=== PATIENT | male | born 1930 | race Caucasian/White ===

== ENCOUNTER 2018-09-11 13:32 | Inpatient (IN) | payer MEDICARE, OTHER ==
[~2018-09-11] VITALS: Ht 167.6 cm; Wt 76.7 kg
[~2018-09-11 13:32] MED LIST: ALLOPURINOL100 MG PO; ATENOLOL50 MG PO; FUROSEMIDE40 MG PO; GLIMEPIRIDE2 MG PO; ISOSORBIDE MONO60 MG PO; LIOTHYRONINE SO5 MCG PO; LIPITOR40 MG PO; NAPROXEN250 MG PO; NORCO 7.5-3251 EACH PO; PLAVIX75 MG PO; SPIRONOLACTONE25 MG PO; TRAZODONE HCL50 MG PO; ULTRAM50 MG PO; Z XANAX PO; Z.0.LEVOTHYROXINE50 PO; Z.2.METFORMIN HCL500 PO
--- OUTSIDE RECORDS SUMMARY | 2018-09-11 13:38 | XMS REPORT | Clinical Summary ---
Author Author [employer] [facility] [employer] [facility] Address Unknown Phone Unavailable Care Team Providers Care Cattle Inspector Name Role Phone Fela Deshawn Matthews PCP Seth Gonzalez Unavailable Allergies No Known Allergies Medications End Date Status Medication Sig Dispensed Refills Start Date Active levothyroxine (SYNTHROID, Take 50 mcg 0 LEVOTHROID) 50 MCG tablet by mouth Every morning on an empty stomach. Active liothyronine (CYTOMEL) 5 Take 5 mcg by 0 MCG tablet mouth daily. Active metFORMIN (GLUCOPHAGE) Take 500 mg 0 500 MG tablet by mouth 2 (two) times daily with breakfast and dinner. Active ALPRAZolam (XANAX) 0.5 MG Take 0.5 mg 0 tablet by mouth 2 (two) times daily as needed for Anxiety. Active traMADol (ULTRAM) 50 mg Take 50 mg by 0 tablet mouth every 6 (six) hours as needed for Pain. Active clopidogrel (PLAVIX) 75 Take 75 mg by 0 mg tablet mouth daily. Active atorvastatin (LIPITOR) 20 Take 20 mg by 0 MG tablet mouth daily. 06/09/2019 Active tamsulosin (FLOMAX) 0.4 Take 1 30 capsule 11 mg Cap 24 hr capsule capsule (0.4 8 mg total) by mouth daily. Active zinc oxide-petrolatum Apply to 71 g 11 (CRITIC-AID) 20-51 % Pste groin and 8 topical paste perineal area twice daily and as needed. Active Problems Problem Noted Date SOB (shortness of breath) 06/06/2018 Stroke Diabetes mellitus Hypothyroid Encounters Care Team Description Date Type Specialty Thomas Mac MD Nalam, Simran Meehan MD SOB (shortness of breath) (Primary Dx); Chest tightness; Cerebrovascular accident (CVA), unspecified mechanism (HCC); Type 2 diabetes mellitus with complication, without long-term current use of insulin (HCC); Hypothyroidism, unspecified type 06/06/2018 Emergency Cardiology - 06/08/2018 06/06/2018 Orders Only General Internal Medicine after 09/10/2017 Immunizations Name Dates Previously Given Next Due Influenza Four-QIV Non-PF 06/08/2018 5+ YR Pneumococcal Conjugate 06/08/2018 (Prevnar) 13-Valent Social History Date Tobacco Use Types Packs/Day Years Used Former Smoker Smokeless Tobacco: Never Used Comments: Quit smoking at age 60 Sex Assigned at Date Recorded Not on file Industry Job Start Date Occupation Not on file Not on file Not on file Travel End Travel History Travel Start No recent travel history available. Last Filed Vital Signs Time Taken Vital Sign Reading 06/08/2018 11:50 AM CDT Blood Pressure 148/69 06/08/2018 11:50 AM CDT Pulse 79 06/08/2018 11:50 AM CDT Temperature 36.2 C (97.2 F) 06/08/2018 11:50 AM CDT Respiratory Rate 18 06/08/2018 11:50 AM CDT Oxygen Saturation 94% - Inhaled Oxygen - Concentration 06/08/2018 5:13 AM CDT Weight 77.8 kg (171 lb 9.6 oz) 06/06/2018 10:31 AM CDT Height 167.6 cm (5' 6") 06/08/2018 5:13 AM CDT Body Mass Index 27.7 Plan of Treatment Not on file Procedures Comments Procedure Name Priority Date/Time Associated Diagnosis ECHOCARDIOGRAM REPORT - 06/09/2018 SCAN 2:24 PM CDT RHYTHM STRIP - SCAN 06/09/2018 12:31 PM CDT POCT-GLUCOSE METER Routine 06/08/2018 6:17 AM CDT CBC W/PLT COUNT & AUTO Routine 06/08/2018 DIFFERENTIAL 6:04 AM CDT CBC W/PLT COUNT & AUTO Routine 06/08/2018 DIFFERENTIAL 6:04 AM CDT BASIC METABOLIC PANEL (7) Routine 06/08/2018 6:04 AM CDT POCT-GLUCOSE METER Routine 06/07/2018 9:50 PM CDT POCT-GLUCOSE METER Routine 06/07/2018 5:15 PM CDT XR ESOPH SWALLOW FUNCTION Routine 06/07/2018 W/CINE VIDEO 3:50 PM CDT POCT-GLUCOSE METER Routine 06/07/2018 12:28 PM CDT 2D ECHO W/ DOPPLER Pending 06/07/2018 (CW/PW/COLOR) Discharge 11:53 AM CDT POCT-GLUCOSE METER Routine 06/07/2018 8:08 AM CDT CBC W/PLT COUNT & AUTO Routine 06/07/2018 DIFFERENTIAL 3:13 AM CDT PREALBUMIN Routine 06/07/2018 3:13 AM CDT HEMOGLOBIN A1C Routine 06/07/2018 3:13 AM CDT LIPID PANEL Routine 06/07/2018 3:13 AM CDT TSH/FREE T4 IF INDICATED Routine 06/07/2018 3:13 AM CDT PT/APTT Routine 06/07/2018 3:13 AM CDT HEPATIC FUNCTION PANEL Routine 06/07/2018 3:13 AM CDT CBC W/PLT COUNT & AUTO Routine 06/07/2018 DIFFERENTIAL 3:13 AM CDT BASIC METABOLIC PANEL (7) Routine 06/07/2018 3:13 AM CDT POCT-GLUCOSE METER Routine 06/06/2018 10:26 PM CDT ECG 12-LEAD Routine 06/06/2018 8:10 PM CDT CREATINE KINASE (CK), Routine 06/06/2018 TOTAL AND MB 5:38 PM CDT TROPONIN I Routine 06/06/2018 5:[address] CHEST WITHOUT IV STAT 06/06/2018 CONTRAST 5:06 PM CDT ED ECG INTERPRETATION Routine 06/06/2018 4:19 PM CDT D-DIMER STAT 06/06/2018 12:54 PM CDT TROPONIN I STAT 06/06/2018 11:49 AM CDT CREATINE KINASE (CK), STAT 06/06/2018 TOTAL AND MB 11:49 AM CDT B-TYPE NATRIURETIC FACTOR STAT 06/06/2018 (BNP) 11:49 AM CDT BASIC METABOLIC PANEL (7) STAT 06/06/2018 11:49 AM CDT XR CHEST PA OR AP 1 VIEW STAT 06/06/2018 IN DEPT. 11:36 AM CDT CBC W/PLT COUNT & AUTO STAT 06/06/2018 DIFFERENTIAL 10:59 AM CDT CBC W/PLT COUNT & AUTO STAT 06/06/2018 DIFFERENTIAL 10:59 AM CDT ECG 12-LEAD STAT 06/06/2018 10:42 AM CDT after 09/10/2017 Results * ECHOCARDIOGRAM REPORT - SCAN (06/09/2018 2:24 PM CDT) Narrative Performed At * RHYTHM STRIP - SCAN (06/09/2018 12:31 PM CDT) Narrative Performed At * POC-Glucose meter (06/08/2018 6:17 AM CDT) Only the most recent of 6 results within the time period is included. POC-Glucose Meter 105Comment: TESTED AT [facility] 70 - 110 mg/dL [address] [facility] Specimen Blood Performing Organization Address City/State/Zipcode Phone Number [address] [address] MED[facility]ENTER * CBC with platelet count + automated diff (06/08/2018 6:04 AM CDT) Only the most recent of 3 results within the time period is included. WBC 7.5 3.5 - 10.5 K/L [facility] RBC 3.91 (L) 4.63 - 6.08 M/L [facility] Hemoglobin 12.2 (L) 13.7 - 17.5 GM/DL [facility] Hematocrit 37.3 (L) 40.1 - 51.0 % [facility] MCV 95.4 (H) 79.0 - 92.2 fL [facility] MCH 31.2 25.7 - 32.2 pg [facility] MCHC 32.7 32.3 - 36.5 GM/DL [facility] RDW 13.4 11.6 - 14.4 % [facility] Platelets 221 150 - 450 K/CU MM [facility] MPV 10.5 9.4 - 12.4 fL [facility] nRBC 0 0 - 0 /100 WBC [facility] % Neutros 46 % [facility] % Lymphs 30 % [facility] % Monos 12 % [facility] % Eos 10 % [facility] % Baso 0 % [facility] # Neutros 3.47 1.78 - 5.38 K/L [facility] # Lymphs 2.26 1.32 - 3.57 K/L [facility] # Monos 0.92 (H) 0.30 - 0.82 K/L [facility] # Eos 0.77 (H) 0.04 - 0.54 K/L [facility] # Baso 0.02 0.01 - 0.08 K/L [facility] Immature 0 0 - 1 % [facility] Granulocytes-Relative [facility] Specimen Blood Performing Organization Address City/[facility]/Zipcode Phone Number [facility] [address] [place] [address] [phone] [place] [address] * Basic metabolic panel (06/08/2018 6:04 AM CDT) Only the most recent of 3 results within the time period is included. Sodium 137 136 - 145 meq/L [facility] Potassium 3.7 3.5 - 5.1 meq/L [facility] Chloride 107 98 - 107 meq/L [facility] CO2 24 22 - 29 meq/L [facility] BUN 17 7 - 21 mg/dL [facility] Creatinine 0.74 0.57 - 1.25 mg/dL [facility] Glucose 96 70 - 105 mg/dL [facility] Calcium 8.6 8.4 - 10.2 mg/dL [facility] EGFR 100Comment: ESTIMATED GFR IS mL/min/1.73 sq m [facility] NOT ACCURATE CREATININE [facility] CLEARANCE IN PREDICTING GLOMERULAR FILTRATION RATE. ESTIMATED GFR IS NOT APPLICABLE FOR DIALYSIS PATIENTS. Specimen Blood Performing Organization Address City/[facility] Phone Number [facility] [address] [place], [place] [phone] [place] [address] * FL esoph swallow funct with cine video (06/07/2018 3:50 PM CDT) Narrative Performed At FINAL REPORT GE [facility] Modified barium swallow with speech pathology History: dysphagia Technique: Modified barium swallow was performed in conjunction with speech pathology. Examination utilized various textures of barium. Fluoroscopic observation was performed during swallowing. Total fluoroscopy time: 1.7 minutes Total number of films: 1 IMPRESSION: There is laryngeal penetration with thin and nectar thick liquid barium. Please refer to the speech pathology report for further details. Signed: Nazario Guerrero MD Report Verified Date/Time:06/07/2018 15:39:04 Reading Location: [facility] [id number] Ortho Consult Reading Room Procedure Note Interface, External Ris In - 06/07/2018 11:01 PM CDT FINAL REPORT Modified barium swallow with speech pathology History: dysphagia Technique: Modified barium swallow was performed in conjunction with speech pathology. Examination utilized various textures of barium. Fluoroscopic observation was performed during swallowing. Total fluoroscopy time: 1.7 minutes Total number of films: 1 IMPRESSION: There is laryngeal penetration with thin and nectar thick liquid barium. Please refer to the speech pathology report for further details. Signed: Nazario Guerrero MD Report Verified Date/Time: 06/07/2018 15:39:04 Reading Location: [facility] [id number] Ortho Consult Reading Room Performing Organization Address City/State/Zipcode Phone Number GE RIS * 2D Echo W/Doppler(CW/PW/Color) (06/07/2018 11:53 AM CDT) Ejection Fraction [facility] ECHO HEARTLAB [facility] Narrative Performed At Transthoracic Echocardiography Report (TTE) [facility] ECHO HEARTLAB Demographics [facility] Patient Name KATE SIMON Date of Study 06/07/2018 RAY [id number] GenderMale Visit Number [id number] RaceUnknown [id number] Number [id number] Number Date of1930 Referring Eva Feliciano, Physician ACCELERATOR TECHNICIAN Age87 year(s) Exhibition Specialist ALFREDO Giang, RDCS,RVT,RDMS InterpretingBasant MD Lyndon Physician Fellow MELO Williamson Procedure Type of Study TTE procedure:2DECHO W DOPPLER(CW/PW/COLOR) (Pending Discharge) Indications:Shortness of breath. Clinical History CVA, DM, HYPOTHYROID, HLD, CAD, A-FIB, HTN Height: 66 inches Weight: 77.56 kg (171 lbs) BSA: 1.87 m^2 BMI: 27.6 kg/m^2 HR: 87 bpm BP: 142/77 mmHg Summary 1. The left ventricle is chamber size (by PSLAX dimension) is normal (male - LVIDd 4.2-5.8cm) . Normal wall thickness. The LV endocardium is incompletely visualized. In the limited views, no gross regional wall motion abnormalities noted. Overall LVEF is normal with estimated EF > 60%. LV diastolic function is indeterminate. 2. RV is not well visualized. In the limited views, RV is grossly normal in size and function. S' 11 cm/sec. 3. LA and RA are both grossly normal in size. 4. Trace tricuspid regurgitation. Peak systolic pressure may be underestimated; partial TR signal. Estimated peak systolic PA pressure is at least 25-30 mmHg . The estimated RA pressure by IVC dynamics 0-5mmHg . 5. No significant pericardial effusion is visualized. Previous Study No prior exam available for comparison. Signature Findings Left Ventricle The left ventricle is chamber size (by PSLAX dimension) is normal (male - LVIDd 4.2-5.8cm) . Normal wall thickness. The LV endocardium is incompletely visualized. In the limited views, no gross regional wall motion abnormalities noted. Overall LVEF is normal with estimated EF > 60%. LV diastolic function is indeterminate. Left AtriumLA is incompletely visualized, size based on qualitative assessment. LA size is normal . Right VentricleRV is not well visualized. In the limited views, RV is grossly normal in size and function. S' 11 cm/sec. Right Atrium RA size is probably normal based on available views. Aortic Valve Aortic valve is not well seen on the short axis views. Unable to discern number of cusps. No evidence of aortic stenosis. No evidence of aortic regurgitation. Mitral Valve Mild MAC. Normal wall thickness. Trace mitral regurgitation. Tricuspid ValveTrace tricuspid regurgitation. Peak systolic pressure may be underestimated; partial TR signal. Estimated peak systolic PA pressure is at least 25-30 mmHg . Pulmonic Valve PV is not well visualized; function appears normal by Doppler visualized. PericardiumNo significant pericardial effusion is visualized. IVC/SVC/PA/PV/PleuralThe estimated RA pressure by IVC dynamics 0-5mmHg . Chambers/Structures Left Ventricle LVIDd: 5.17 cm LVIDs: 2.71 cm LV Septum Diastolic: 0.89 cm LV PW Diastolic: 1 cmLV FS: 47.6 % LVOT Diameter: 2.03 cm Right Ventricle RV Systolic Pressure: 27.28 mmHg Doppler/Quantitative Measurements Mitral Valve MV Peak E-Wave: 0.67 m/s MV Peak A-Wave: 1.03 m/s E/A Ratio: 0.65 Peak Gradient: 1.78 mmHg MV Dejan. Peak: Tissue Doppler E' Septal Velocity: 0.06 m/s E/E': 11 E' Lateral Velocity: 0.06 m/s Aortic Valve Peak Velocity: 1.09 m/sMean Velocity: 0.7 m/s Peak Gradient: 4.76 mmHg Mean Gradient: 2.33 mmHg AV Area (continuity): 3 cm^2 AV VTI: 18.48 cm AV DVI: 0.93 LVOT Peak Velocity: 0.93 m/s Peak Gradient: 3.49 mmHg Mean Velocity: 0.6 m/sMean Gradient: 1.7 mmHg LVOT Diameter: 2.03 cmLVOT VTI: 17.14 cm LVOT Area: 3.24 cm^2LVOT SV:55.45 ml LVOT CO: 4.82 l/min LVOT CI: 2.58 l/min/m^2 Tricuspid Valve Estimated RAP: 5 mmHg TR Velocity: 2.36 m/s TR Gradient: 22.28 mmHg Pulmonic Valve Estimated PASP: 27.28 mmHg Procedure Note Interface, External Ris In - 06/09/2018 1:36 PM CDT Transthoracic Echocardiography Report (TTE) Demographics Patient Name KATE SIMON Date of Study 06/07/2018 RAY Gender Male Visit Number [id number] Race Unknown Room Number 1138 Number Date of 1930 Referring Eva Feliciano, Physician ACCELERATOR TECHNICIAN Age 87 year(s) Exhibition Specialist Tonio Forrester, NB, RDCS,RVT,RDMS Interpreting Bee Haney MD Physician Fellow MELO Williamson Procedure Type of Study TTE procedure:2DECHO W DOPPLER(CW/PW/COLOR) (Pending Discharge) Indications:Shortness of breath. Clinical History CVA, DM, HYPOTHYROID, HLD, CAD, A-FIB, HTN Height: 66 inches Weight: 77.56 kg (171 lbs) BSA: 1.87 m^2 BMI: 27.6 kg/m^2 HR: 87 bpm BP: 142/77 mmHg Summary 1. The left ventricle is chamber size (by PSLAX dimension) is normal (male - LVIDd 4.2-5.8cm) . Normal wall thickness. The LV endocardium is incompletely visualized. In the limited views, no gross regional wall motion abnormalities noted. Overall LVEF is normal with estimated EF > 60%. LV diastolic function is indeterminate. 2. RV is not well visualized. In the limited views, RV is grossly normal in size and function. S' 11 cm/sec. 3. LA and RA are both grossly normal in size. 4. Trace tricuspid regurgitation. Peak systolic pressure may be underestimated; partial TR signal. Estimated peak systolic PA pressure is at least 25-30 mmHg . The estimated RA pressure by IVC dynamics 0-5mmHg . 5. No significant pericardial effusion is visualized. Previous Study No prior exam available for comparison. Signature Findings Left Ventricle The left ventricle is chamber size (by PSLAX dimension) is normal (male - LVIDd 4.2-5.8cm) . Normal wall thickness. The LV endocardium is incompletely visualized. In the limited views, no gross regional wall motion abnormalities noted. Overall LVEF is normal with estimated EF > 60%. LV diastolic function is indeterminate. Left Atrium LA is incompletely visualized, size based on qualitative assessment. LA size is normal . Right Ventricle RV is not well visualized. In the limited views, RV is grossly normal in size and function. S' 11 cm/sec. Right Atrium RA size is probably normal based on available views. Aortic Valve Aortic valve is not well seen on the short axis views. Unable to discern number of cusps. No evidence of aortic stenosis. No evidence of aortic regurgitation. Mitral Valve Mild MAC. Normal wall thickness. Trace mitral regurgitation. Tricuspid Valve Trace tricuspid regurgitation. Peak systolic pressure may be underestimated; partial TR signal. Estimated peak systolic PA pressure is at least 25-30 mmHg . Pulmonic Valve PV is not well visualized; function appears normal by Doppler visualized. Pericardium No significant pericardial effusion is visualized. IVC/SVC/PA/PV/Pleural The estimated RA pressure by IVC dynamics 0-5mmHg . Chambers/Structures Left Ventricle LVIDd: 5.17 cm LVIDs: 2.71 cm LV Septum Diastolic: 0.89 cm LV PW Diastolic: 1 cm LV FS: 47.6 % LVOT Diameter: 2.03 cm Right Ventricle RV Systolic Pressure: 27.28 mmHg Doppler/Quantitative Measurements Mitral Valve MV Peak E-Wave: 0.67 m/s MV Peak A-Wave: 1.03 m/s E/A Ratio: 0.65 Peak Gradient: 1.78 mmHg MV Edjan. Peak: Tissue Doppler E' Septal Velocity: 0.06 m/s E/E': 11 E' Lateral Velocity: 0.06 m/s Aortic Valve Peak Velocity: 1.09 m/s Mean Velocity: 0.7 m/s Peak Gradient: 4.76 mmHg Mean Gradient: 2.33 mmHg AV Area (continuity): 3 cm^2 AV VTI: 18.48 cm AV DVI: 0.93 LVOT Peak Velocity: 0.93 m/s Peak Gradient: 3.49 mmHg Mean Velocity: 0.6 m/s Mean Gradient: 1.7 mmHg LVOT Diameter: 2.03 cm LVOT VTI: 17.14 cm LVOT Area: 3.24 cm^2 LVOT SV:55.45 ml LVOT CO: 4.82 l/min LVOT CI: 2.58 l/min/m^2 Tricuspid Valve Estimated RAP: 5 mmHg TR Velocity: 2.36 m/s TR Gradient: 22.28 mmHg Pulmonic Valve Estimated PASP: 27.28 mmHg Performing Organization Address City/State/Zipcode Phone Number [facility] * TSH/Free T4 If Indicated (06/07/2018 3:13 AM CDT) TSH 2.21 0.35 - 4.94 uIU/mL [facility] Specimen Blood - Arm, Right Performing Organization Address [facility] Phone Number [facility] [address] [place] [address] [facility] * PT/aPTT (06/07/2018 3:13 AM CDT) Protime 13.8 11.7 - 14.7 seconds [facility] INR 1.1 <=5.9 [facility] PTT 27.9 22.5 - 36.0 seconds [facility] Specimen Blood - Arm, Right Narrative Performed At RECOMMENDED COUMADIN/WARFARIN INR THERAPY RANGES [facility] STANDARD DOSE: 2.0 - 3.0 Includes: PROPHYLAXIS for venous thrombosis, [facility] systemic embolization; TREATMENT for venous thrombosis and/or pulmonary embolus. HIGH RISK: Target INR is 2.5-3.5 for patients with mechanical heart valves. Performing Organization Address [facility] Phone Number [facility] [address] [place] [address] [facility] * Prealbumin (06/07/2018 3:13 AM CDT) Prealbumin 17 14 - 45 mg/dL [facility] Specimen Blood - Arm, Right Performing Organization Address [facility] Phone Number [facility] [address] [place] [address] [facility] * Hemoglobin A1c (06/07/2018 3:13 AM CDT) Hemoglobin A1C 4.9 4.3 - 6.1 % [facility] Specimen Blood - Arm, Right Performing Organization Address [facility] Phone Number [facility] [address] [place] [address] [facility] * Hepatic function panel (06/07/2018 3:13 AM CDT) Protein, Total 5.4 (L) 6.0 - 8.3 gm/dL [facility] Albumin 3.2 (L) 3.5 - 5.0 g/dL [facility] Total Bilirubin 0.5 0.2 - 1.2 mg/dL [facility] Bilirubin, Direct 0.2 0.1 - 0.5 mg/dL [facility] Alkaline Phosphatase 97 40 - 150 U/L [facility] AST 14 5 - 34 U/L [facility] ALT 13 6 - 55 U/L [facility] Specimen Blood - Arm, Right Performing Organization Address City/State/[facility] Phone Number [facility] [address] [place] [address] [phone] [place] [address] * Lipid panel (06/07/2018 3:13 AM CDT) Triglycerides 65 mg/dL [facility] Cholesterol 111 mg/dL [facility] HDL 35 mg/dL [facility] LDL Calculated 63 mg/dL [facility] Specimen Blood - Arm, Right Narrative Performed At Triglyceride Reference Range: [facility] Low Risk <[address] [facility] [id number] High Risk 200-499 Very High Risk>=500 Cholesterol Reference Range: Low Risk <200 [id number] High Risk>240 HDL Cholesterol Reference Range: Low Risk >=60 High Risk <40 LDL Cholesterol Reference Range: Optimal<100 Near Sqgzusm400-241 [id number] Nkox305-351 Very High >=190 Performing Organization Address City/State/Zipcode Phone Number [facility] [address] [place] [address] [facility] * ECG 12 lead (06/06/2018 8:10 PM CDT) Only the most recent of 2 results within the time period is included. Narrative Performed At Ventricular Rate 102 BPM GE [facility]USE Atrial Rate 102 BPM P-R Interval 144 ms QRS Duration 162 ms Q-T Interval 372 ms QTC Calculation(Bazett) 484 ms P [place] 71 degrees R [place] 20 degrees T [place] 33 degrees Sinus tachycardia Right bundle branch block Abnormal ECG When compared with ECG of 06-JUN-2018 10:42, No significant change was found Confirmed by MD Chang Roberto ([id number]) on 06/07/2018 2:07:58 PM Procedure Note Interface, External Ris In - 06/07/2018 2:08 PM CDT Ventricular Rate 102 BPM Atrial Rate 102 BPM P-R Interval 144 ms QRS Duration 162 ms Q-T Interval 372 ms QTC Calculation(Bazett) 484 ms P [place] 71 degrees R [place] 20 degrees T [place] 33 degrees Sinus tachycardia Right bundle branch block Abnormal ECG When compared with ECG of 06-JUN-2018 10:42, No significant change was found Confirmed by MD Chang Roberto ([id number]) on 06/07/2018 2:07:58 PM Performing Organization Address City/State/Spreetalescode Phone Number [facility] * Troponin I (06/06/2018 5:38 PM CDT) Only the most recent of 2 results within the time period is included. Troponin I <0.01 0.00 - 0.03 ng/mL [facility] Specimen Blood - Arm, Right Narrative Performed At Troponin I (TnI) levels must be interpreted in the context of the presenting [facility] symptoms and the clinical findings. Elevated TnI levels indicate myocardial [facility] damage, but are not specific for ischemic heart disease. Elevated TnI levels are seen in patients with other cardiac conditions (including myocarditis and congestive heart failure), and slight TnI elevations occur in patients with other conditions, including sepsis, renal failure, acidosis, acute neurological disease, and persistent tachyarrhythmia. Performing Organization Address City/State/Spreet[place]code Phone Number [facility] [address] [place], [place] [id number] [facility] * Creatine Kinase (CK), Total and MB (06/06/2018 5:38 PM CDT) Only the most recent of 2 results within the time period is included. Total CK 48 29 - 200 U/L [facility] CK-MB 1.8 0.0 - 6.6 ng/mL [facility] MB Relative Index 3.8 % [facility] Specimen Blood - Arm, Right Narrative Performed At CK-MB Reference Range: [facility] <6.7Normal [facility] 6.7-10.0Borderline >10.0 Abnormal Performing Organization Address City/[facility]/Zipcode Phone Number [facility] [address] [place], [place] [phone] [facility] * CT chest without IV contrast (06/06/2018 5:06 PM CDT) Narrative Performed At FINAL REPORT Project Travel CT of the Chest dated 06/06/2018 CLINICAL INFORMATION: SOB, pulmonary edema suspected SOB Comment:Axial images of the chest were obtained from thoracic inlet to the upper abdomen without intravenous contrast. This exam was performed according to our departmental dose-optimization program, which includes automated exposure control, adjustment of the mA and/or kV according to patient size and/or use of interactive reconstruction technique. Heart is normal in size. Atherosclerotic calcification seen in the thoracic aorta and coronary arteries. Great vessels are unremarkable. No adenopathy in the mediastinum or perihilar region. Trachea and mainstem bronchi are patent. Subsegmental atelectasis is seen in the lingula and left lung base. The rest of the lungs are clear.No nodular, mass lesion or airspace disease is noted.No interstitial disease or bronchiectasis is present. No pleural effusion or pleural based mass seen. Visualized upper abdomen demonstrates several stones in the left kidney measuring up to 6 mm in size. A 5 x 9 mm stone is seen in the right renal pelvis. A 1.8 cm cyst is seen in the upper pole right kidney. Impression: 1. Subsegmental atelectasis in the lingula and left lower lobe. 2. Left renal and left renal pelvic stones. 3. No pulmonary edema. Signed: Seth Giraldo MD Report Verified Date/Time:06/06/2018 17:10:04 Reading Location: [address] Radiology Reading Room Procedure Note Interface, External Ris In - 06/06/2018 5:41 PM CDT FINAL REPORT CT of the Chest dated 06/06/2018 CLINICAL INFORMATION: SOB, pulmonary edema suspected SOB Comment: Axial images of the chest were obtained from thoracic inlet to the upper abdomen without intravenous contrast. This exam was performed according to our departmental dose-optimization program, which includes automated exposure control, adjustment of the mA and/or kV according to patient size and/or use of interactive reconstruction technique. Heart is normal in size. Atherosclerotic calcification seen in the thoracic aorta and coronary arteries. Great vessels are unremarkable. No adenopathy in the mediastinum or perihilar region. Trachea and mainstem bronchi are patent. Subsegmental atelectasis is seen in the lingula and left lung base. The rest of the lungs are clear. No nodular, mass lesion or airspace disease is noted. No interstitial disease or bronchiectasis is present. No pleural effusion or pleural based mass seen. Visualized upper abdomen demonstrates several stones in the left kidney measuring up to 6 mm in size. A 5 x 9 mm stone is seen in the right renal pelvis. A 1.8 cm cyst is seen in the upper pole right kidney. Impression: 1. Subsegmental atelectasis in the lingula and left lower lobe. 2. Left renal and left renal pelvic stones. 3. No pulmonary edema. Signed: Seth Giraldo MD Report Verified Date/Time: 06/06/2018 17:10:04 Reading Location: [address] Radiology Reading Room Performing Organization Address City/State/Zipcode Phone Number GE RIS * ED ECG Interpretation (06/06/2018 4:19 PM CDT) Narrative [facility] MD 06/06/20184:19 PM ECG/EKG Interpretation Date/Time: 06/06/2018 4:18 PM Performed by: THOMAS MAC Authorized by: THOMAS MAC The ECG was interpreted by ED physician. The ECG is interpreted as sinus rhythm. Rate is normal rate. Heart rate is 82 BPM. Abnormal conduction noted: right bundle branch block. ST segments abnormal. T waves abnormal. [place] is right. Clinical Impression: abnormal ECGECG reviewed and does not meet STEMI criteria. * D-dimer (06/06/2018 12:54 PM CDT) D-Dimer, Quant 0.50 (H) <0.50 MG/L FEU [facility] Specimen Blood - Line, Venous Narrative Performed At Intended Use: The D-Dimer Assay can be used to aid in the diagnosis of Deep Vein [facility] Thrombosis (DVT) and Pulmonary Embolism Disease (PED). [facility] In patients with low pre-test probability, various studies concerning STA Liatest D-dimer test have reported that with a cutoff value of 0.50 MG/L FEU, the Negative Predictive Value (NPV) regarding the exclusion of thrombosis is within 95-100% range. Performing Organization Address City/[facility]/Zipcode Phone Number [address] * B-type Natriuretic Factor (BNP) (06/06/2018 11:49 AM CDT) BNP 24 0 - 100 pg/mL [facility] Specimen Blood - Arm, Left Performing Organization Address [facility] [place] [address] [phone] * XR chest PA or AP 1 view in dept (06/06/2018 11:36 AM CDT) Narrative Performed At FINAL REPORT [employer] Chest, AP view, two images. History: Chest pain. Comparison: None available. Discussion:Suboptimal positioning. The cardiomediastinal silhouette and pulmonary vasculature are within normal limits. The lungs are clear without evidence of consolidation or effusion.There are no acute osseous abnormalities. The soft tissues are unremarkable. IMPRESSION: No acute cardiopulmonary abnormality. Signed: Cindi Wan MD Report Verified Date/Time:06/06/2018 12:23:59 Reading Location: [facility] Mammo Reading Room Procedure Note Interface, External Ris In - 06/06/2018 12:26 PM CDT FINAL REPORT Chest, AP view, two images. History: Chest pain. Comparison: None available. Discussion: Suboptimal positioning. The cardiomediastinal silhouette and pulmonary vasculature are within normal limits. The lungs are clear without evidence of consolidation or effusion. There are no acute osseous abnormalities. The soft tissues are unremarkable. IMPRESSION: No acute cardiopulmonary abnormality. Signed: Cindi Wan MD Report Verified Date/Time: 06/06/2018 12:23:59 Reading Location: [facility] Mammo Reading Room Performing Organization Address City/State/Zipcode Phone Number GE RIS after 09/10/2017 Insurance Payer Benefit Subscriber ID Type Phone Address Plan / Group [facility] [employer] xxxxxxxx [facility] Contracted ALL Advance Directives For more information, please contact: [address] [address] Date Inactivated Comments Code Status Date Activated 06/08/2018 3:46 PM Full Code 06/06/2018 7:09 PM This code status was determined by: Patient
--- OUTSIDE RECORDS SUMMARY | 2018-09-11 13:38 | XMS REPORT ---
Author Author [facility] Address Unknown Phone Unavailable Care Team Providers Care Block Cuber Name Role Phone WENDY WRIGHT Unavailable Unavailable Problems This patient has no known problems. Allergies, Adverse Reactions, Alerts This patient has no known allergies or adverse reactions. Medications This patient has no known medications. Results Test Description Test Time Test Comments Text Results Atomic Results Result Comments BASIC METABOLIC PANEL 2018-06-08 07:18:00 SODIUM (BEAKER) (test ench=740) 137 meq/L 136-145 POTASSIUM (BEAKER) (test cyez=384) 3.7 meq/L 3.5-5.1 CHLORIDE (BEAKER) (test osvb=752) 107 meq/L 98-107 CO2 (BEAKER) (test xbhh=982) 24 meq/L 22-29 BLOOD UREA NITROGEN (BEAKER) (test aixo=941) 17 mg/dL 7-21 CREATININE (BEAKER) (test doek=000) 0.74 mg/dL 0.57-1.25 GLUCOSE RANDOM (BEAKER) (test qwtd=514) 96 mg/dL 70-105 CALCIUM (BEAKER) (test ftul=155) 8.6 mg/dL 8.4-10.2 EGFR (BEAKER) (test rgid=2813) 100 mL/min/1.73 sq m ESTIMATED GFR IS NOT ACCURATE CREATININE CLEARANCE IN PREDICTING GLOMERULAR FILTRATION RATE. ESTIMATED GFR IS NOT APPLICABLE FOR DIALYSIS PATIENTS. CBC W/PLT COUNT & AUTO [id number] 06:41:00* Test Item Value Reference Range Comments WHITE BLOOD CELL COUNT (BEAKER) (test xxav=093) 7.5 K/ L 3.5-10.5 RED BLOOD CELL COUNT (BEAKER) (test rsnz=960) 3.91 M/ L 4.63-6.08 HEMOGLOBIN (BEAKER) (test zttw=146) 12.2 GM/DL 13.7-17.5 HEMATOCRIT (BEAKER) (test yecu=964) 37.3 % 40.1-51.0 MEAN CORPUSCULAR VOLUME (BEAKER) (test squi=690) 95.4 fL 79.0-92.2 MEAN CORPUSCULAR HEMOGLOBIN (BEAKER) (test nioh=813) 31.2 pg 25.7-32.2 MEAN CORPUSCULAR HEMOGLOBIN CONC (BEAKER) (test icwx=845) 32.7 GM/DL 32.3-36.5 RED CELL DISTRIBUTION WIDTH (BEAKER) (test yqxc=478) 13.4 % 11.6-14.4 PLATELET COUNT (BEAKER) (test ohgq=121) 221 K/CU MM 150-450 MEAN PLATELET VOLUME (BEAKER) (test wdug=435) 10.5 fL 9.4-12.4 NUCLEATED RED BLOOD CELLS (BEAKER) (test doaw=534) 0 /100 WBC 0-0 NEUTROPHILS RELATIVE PERCENT (BEAKER) (test whop=585) 46 % LYMPHOCYTES RELATIVE PERCENT (BEAKER) (test pqac=032) 30 % MONOCYTES RELATIVE PERCENT (BEAKER) (test gelq=268) 12 % EOSINOPHILS RELATIVE PERCENT (BEAKER) (test nvma=633) 10 % BASOPHILS RELATIVE PERCENT (BEAKER) (test itpb=194) 0 % NEUTROPHILS ABSOLUTE COUNT (BEAKER) (test qbej=760) 3.47 K/ L 1.78-5.38 LYMPHOCYTES ABSOLUTE COUNT (BEAKER) (test esnw=125) 2.26 K/ L 1.32-3.57 MONOCYTES ABSOLUTE COUNT (BEAKER) (test qnbe=208) 0.92 K/ L 0.30-0.82 EOSINOPHILS ABSOLUTE COUNT (BEAKER) (test cced=455) 0.77 K/ L 0.04-0.54 BASOPHILS ABSOLUTE COUNT (BEAKER) (test cnqw=275) 0.02 K/ L 0.01-0.08 IMMATURE GRANULOCYTES-RELATIVE PERCENT (BEAKER) (test gcoj=0773) 0 % 0-1 POCT-GLUCOSE [id number] 06:38:00* Test Item Value Reference Range Comments POC-GLUCOSE METER (BEAKER) (test nmym=5842) 105 mg/dL 70-110 TESTED AT [facility] [address] [facility] [address] POCT-GLUCOSE [id number] 22:11:00* Test Item Value Reference Range Comments POC-GLUCOSE METER (BEAKER) (test jxee=7826) 138 mg/dL 70-110 TESTED AT [facility] [address] [facility] [address] POCT-GLUCOSE [id number] 17:24:00* Test Item Value Reference Range Comments POC-GLUCOSE METER (BEAKER) (test klcz=9258) 144 mg/dL 70-110 TESTED AT [address] [address] [place], ESOPH, SWALLOW FUNCTION, WITH CINE OR [id number] 15:39:00Reason for exam:->dysphagiaFINAL REPORT Modified barium swallow with speech pathology [...] speech pathology report for further details. Signed: Luana Guerrero MDReport Verified Date/Time: 06/07/2018 15:39:04 Reading Location: [facility] C0X [facility] Consult Reading Room -GLUCOSE [id number] 12:29:00* Test Item Value Reference Range Comments POC-GLUCOSE METER (BEAKER) (test kpxy=1459) 112 mg/dL 70-110 TESTED AT [address] [address] HEMOGLOBIN [id number] 10:21:00* Test Item Value Reference Range Comments HEMOGLOBIN A1C (BEAKER) (test opap=214) 4.9 % 4.3-6.1 POCT-GLUCOSE [id number] 08:11:00* Test Item Value Reference Range Comments POC-GLUCOSE METER (BEAKER) (test avyc=8276) 174 mg/dL 70-110 TESTED AT [address] [address] TSH/FREE T4 IF [id number] 04:00:00* Test Item Value Reference Range Comments THYROID STIMULATING HORMONE (BEAKER) (test pznc=855) 2.21 uIU/mL 0.35-4.94 LIPID [id number] 03:39:00* Test Item Value Reference Range Comments TRIGLYCERIDES (BEAKER) (test swnc=222) 65 mg/dL CHOLESTEROL (BEAKER) (test chvx=638) 111 mg/dL HDL CHOLESTEROL (BEAKER) (test kpbi=847) 35 mg/dL LDL CHOLESTEROL CALCULATED (BEAKER) (test shdr=877) 63 mg/dL Triglyceride Reference Range: Low Risk <150 Borderline 150-199 High Risk 200-499 Very High Risk >=500Cholesterol Reference Range: Low Risk <200 Borderline 200-239 High Risk >240HDL Cholesterol Reference Range: Low Risk >=60 High Risk <40LDL Cholesterol Reference Range: Optimal <100 Near Optimal 100-129 Borderline 130-159 High 160-189 Very High >=190 BASIC METABOLIC [id number] 03:39:00* Test Item Value Reference Range Comments SODIUM (BEAKER) (test nvvs=784) 140 meq/L 136-145 POTASSIUM (BEAKER) (test pvku=402) 4.0 meq/L 3.5-5.1 CHLORIDE (BEAKER) (test voni=386) 108 meq/L 98-107 CO2 (BEAKER) (test chcy=084) 26 meq/L 22-29 BLOOD UREA NITROGEN (BEAKER) (test ifao=219) 26 mg/dL 7-21 CREATININE (BEAKER) (test yuoq=258) 0.78 mg/dL 0.57-1.25 GLUCOSE RANDOM (BEAKER) (test kdsv=887) 93 mg/dL 70-105 CALCIUM (BEAKER) (test ipnz=522) 8.7 mg/dL 8.4-10.2 EGFR (BEAKER) (test zzax=0186) 94 mL/min/1.73 sq m ESTIMATED GFR IS NOT ACCURATE CREATININE CLEARANCE IN PREDICTING GLOMERULAR FILTRATION RATE. ESTIMATED GFR IS NOT APPLICABLE FOR DIALYSIS PATIENTS. HEPATIC FUNCTION [id number] 03:39:00* Test Item Value Reference Range Comments TOTAL PROTEIN (BEAKER) (test rmps=254) 5.4 gm/dL 6.0-8.3 ALBUMIN (BEAKER) (test mfyq=1387) 3.2 g/dL 3.5-5.0 BILIRUBIN TOTAL (BEAKER) (test oqax=802) 0.5 mg/dL 0.2-1.2 BILIRUBIN DIRECT (BEAKER) (test czye=817) 0.2 mg/dL 0.1-0.5 ALKALINE PHOSPHATASE (BEAKER) (test bijw=382) 97 U/L 40-150 AST (SGOT) (BEAKER) (test vnnd=187) 14 U/L 5-34 ALT (SGPT) (BEAKER) (test mtog=635) 13 U/L 6-55 [id number] 03:38:00* Test Item Value Reference Range Comments PREALBUMIN (BEAKER) (test cyyh=922) 17 mg/dL 14-45 PT/[id number] 03:34:00* Test Item Value Reference Range Comments PROTIME (BEAKER) (test jscr=649) 13.8 seconds 11.7-14.7 INR (BEAKER) (test jejf=041) 1.1 <=5.9 PARTIAL THROMBOPLASTIN TIME (BEAKER) (test nukx=682) 27.9 seconds 22.5-36.0 RECOMMENDED COUMADIN/WARFARIN INR THERAPY RANGESSTANDARD DOSE: 2.0 - 3.0 Inclu fabio: PROPHYLAXIS for venous thrombosis, systemic embolization; TREATMENT for shaq ous thrombosis and/or pulmonary embolus.HIGH RISK: Target INR is 2.5-3.5 for pat ients with mechanical heart valves.CBC W/PLT COUNT & AUTO [id number] 03:22:00* Test Item Value Reference Range Comments WHITE BLOOD CELL COUNT (BEAKER) (test zgnk=921) 8.5 K/ L 3.5-10.5 RED BLOOD CELL COUNT (BEAKER) (test tsgx=598) 3.84 M/ L 4.63-6.08 HEMOGLOBIN (BEAKER) (test saok=061) 11.9 GM/DL 13.7-17.5 HEMATOCRIT (BEAKER) (test xhld=121) 36.7 % 40.1-51.0 MEAN CORPUSCULAR VOLUME (BEAKER) (test ykbu=707) 95.6 fL 79.0-92.2 MEAN CORPUSCULAR HEMOGLOBIN (BEAKER) (test tikn=139) 31.0 pg 25.7-32.2 MEAN CORPUSCULAR HEMOGLOBIN CONC (BEAKER) (test zrdj=443) 32.4 GM/DL 32.3-36.5 RED CELL DISTRIBUTION WIDTH (BEAKER) (test qmvs=042) 13.3 % 11.6-14.4 PLATELET COUNT (BEAKER) (test qwdp=762) 217 K/CU MM 150-450 MEAN PLATELET VOLUME (BEAKER) (test vkhr=734) 10.5 fL 9.4-12.4 NUCLEATED RED BLOOD CELLS (BEAKER) (test fqhy=235) 0 /100 WBC 0-0 NEUTROPHILS RELATIVE PERCENT (BEAKER) (test jpkb=264) 51 % LYMPHOCYTES RELATIVE PERCENT (BEAKER) (test fgof=090) 31 % MONOCYTES RELATIVE PERCENT (BEAKER) (test nlwl=366) 10 % EOSINOPHILS RELATIVE PERCENT (BEAKER) (test ulft=515) 7 % BASOPHILS RELATIVE PERCENT (BEAKER) (test mfdk=285) 0 % NEUTROPHILS ABSOLUTE COUNT (BEAKER) (test phpd=276) 4.33 K/ L 1.78-5.38 LYMPHOCYTES ABSOLUTE COUNT (BEAKER) (test hxwf=820) 2.66 K/ L 1.32-3.57 MONOCYTES ABSOLUTE COUNT (BEAKER) (test zznq=790) 0.85 K/ L 0.30-0.82 EOSINOPHILS ABSOLUTE COUNT (BEAKER) (test uzha=798) 0.60 K/ L 0.04-0.54 BASOPHILS ABSOLUTE COUNT (BEAKER) (test grzt=477) 0.03 K/ L 0.01-0.08 IMMATURE GRANULOCYTES-RELATIVE PERCENT (BEAKER) (test adxm=3897) 0 % 0-1 POCT-GLUCOSE [id number] 23:13:00* Test Item Value Reference Range Comments POC-GLUCOSE METER (BEAKER) (test bbdu=1942) 136 mg/dL 70-110 TESTED AT [place] [id number] [facility] [address] CREATINE KINASE (CK), TOTAL AND [id number] 18:14:00* Test Item Value Reference Range Comments CREATINE KINASE TOTAL (BEAKER) (test iprm=781) 48 U/L 29-200 CREATINE KINASE-MB (BEAKER) (test rlut=679) 1.8 ng/mL 0.0-6.6 CREATINE KINASE-MB INDEX (BEAKER) (test ptar=412) 3.8 % CK-MB Reference Range:<6.7 Normal6.7-10.0 Borderline>10.0 Abnormal TROPONIN [id number] 18:14:00* Test Item Value Reference Range Comments TROPONIN I (BEAKER) (test mjle=030) < ng/mL 0.00-0.03 Troponin I (TnI) levels must be interpreted in the context of the presenting sym ptoms and the clinical findings. Elevated TnI levels indicate myocardial damage, but are not specific for ischemic heart disease. Elevated TnI levels are seen in patients with other cardiac conditions (including myocarditis and congestive h eart failure), and slight TnI elevations occur in patients with other conditions , including sepsis, renal failure, acidosis, acute neurological disease, and per sistent tachyarrhythmia.CT, CHEST, WITHOUT [id number] 17:10:00Reason for exam:->SOBWhat is the patient's sedation requirement?->No SedationFINAL REPORT CT of the Chest dated 06/06/2018 CLINICAL INFORMATION: SOB, pulmonary edema suspectedSOB Comment: Axial images of the chest were obtained from thoracic inlet to the upper abdomen without intravenous contrast. This exam was performed according to our departmental dose-optimization program, which includes automated exposure control, adjustment of the mA and/or kV according to patient size and/or use of interactive reconstruction technique. Heart is normal in size. Atherosclerotic calcification seen in the thoracic a [place] and coronary arteries. Great vessels are unremarkable. No adenopathy in the mediastinum or perihilar region. Trachea and mainstem bronchi are patent. Subs egmental atelectasis is seen in the lingula and left lung base. The rest of the lungs are clear. No nodular, mass lesion or airspace disease is noted. No inte rstitial disease or bronchiectasis is present. No pleural effusion or pleural ba sed mass seen. Visualized upper abdomen demonstrates several stones in the left kidney measuring up to 6 mm in size. A 5 x 9 mm stone is seen in the right renal pelvis. A 1.8 cm cyst is seen in the upper pole right kidney. Impression: 1. S ubsegmental atelectasis in the lingula and left lower lobe.2. Left renal and lef t renal pelvic stones.3. No pulmonary edema. Signed: Seth Giraldo MDReport Verifi ed Date/Time: 06/06/2018 17:10:04 Reading Location: [address] [id number] 13:20:00* Test Item Value Reference Range Comments D-DIMER QUANTITATIVE (BEAKER) (test lczw=353) 0.50 MG/L FEU <0.50 Intended Use: The D-Dimer Assay can be used to aid in the diagnosis of Deep Vein Thrombosis (DVT) and Pulmonary Embolism Disease (PED).In patients with low pre- test probability, various studies concerning STA Liatest D-dimer test have repor evaristo that with a cutoff value of 0.50 MG/L FEU, the Negative Predictive Value ([employer] V) regarding the exclusion of thrombosis is within 95-100% range.RAD, CHEST, PA OR AP, 1 [id number] 12:23:00Reason for exam:->chest painShould this be performed at the bedside?->YesFINAL REPORT Chest, AP view, two images. History: Chest pain. Comparison: None available. Discussion: Suboptimal positioning. The cardiomediastinal silhouette and pulmonary vasculature are within normal limits. The lungs are clear without evidence of consolidation or effusion. There are no acute osseous abnormalities. The soft tissues are unremarkable. IMPRESSION: No acute cardiopulmonary abnormality. Signed: Cindi Wan MDReport Verified Date/Time: 06/06/2018 12:23:59 Reading Location: [facility] Mammo Reading Room C METABOLIC [id number] 12:22:00* Test Item Value Reference Range Comments SODIUM (BEAKER) (test jtpt=434) 138 meq/L 136-145 POTASSIUM (BEAKER) (test delt=759) 4.2 meq/L 3.5-5.1 CHLORIDE (BEAKER) (test btyi=670) 108 meq/L 98-107 CO2 (BEAKER) (test knvx=110) 24 meq/L 22-29 BLOOD UREA NITROGEN (BEAKER) (test abmm=134) 27 mg/dL 7-21 CREATININE (BEAKER) (test hmpu=884) 0.81 mg/dL 0.57-1.25 GLUCOSE RANDOM (BEAKER) (test fvne=805) 96 mg/dL 70-105 CALCIUM (BEAKER) (test tdal=797) 8.9 mg/dL 8.4-10.2 EGFR (BEAKER) (test niax=3427) mL/min/1.73 sq m INSUFFICIENT CLINICAL DATA TO CALCULATE ESTIMATED GFR. CREATINE KINASE (CK), TOTAL AND [id number] 12:19:00* Test Item Value Reference Range Comments CREATINE KINASE TOTAL (BEAKER) (test zciy=665) 42 U/L 29-200 CREATINE KINASE-MB (BEAKER) (test ghpk=444) 1.4 ng/mL 0.0-6.6 CREATINE KINASE-MB INDEX (BEAKER) (test lddu=967) 3.3 % CK-MB Reference Range:<6.7 Normal6.7-10.0 Borderline>10.0 Abnormal TROPONIN [id number] 12:19:00* Test Item Value Reference Range Comments TROPONIN I (BEAKER) (test rbwr=862) < ng/mL 0.00-0.03 Troponin I (TnI) levels must be interpreted in the context of the presenting sym ptoms and the clinical findings. Elevated TnI levels indicate myocardial damage, but are not specific for ischemic heart disease. Elevated TnI levels are seen in patients with other cardiac conditions (including myocarditis and congestive h eart failure), and slight TnI elevations occur in patients with other conditions , including sepsis, renal failure, acidosis, acute neurological disease, and per sistent tachyarrhythmia.B-TYPE NATRIURETIC FACTOR (BNP)2018-06-06 12:17:00* Test Item Value Reference Range Comments B-TYPE NATRIURETIC PEPTIDE (BEAKER) (test nyrk=296) 24 pg/mL 0-100 CBC W/PLT COUNT & AUTO [id number] 11:07:00* Test Item Value Reference Range Comments WHITE BLOOD CELL COUNT (BEAKER) (test scwf=594) 10.0 K/ L 3.5-10.5 RED BLOOD CELL COUNT (BEAKER) (test icjp=595) 4.33 M/ L 4.63-6.08 HEMOGLOBIN (BEAKER) (test dlgh=621) 13.7 GM/DL 13.7-17.5 HEMATOCRIT (BEAKER) (test xvyq=247) 42.2 % 40.1-51.0 MEAN CORPUSCULAR VOLUME (BEAKER) (test kgog=435) 97.5 fL 79.0-92.2 MEAN CORPUSCULAR HEMOGLOBIN (BEAKER) (test migm=764) 31.6 pg 25.7-32.2 MEAN CORPUSCULAR HEMOGLOBIN CONC (BEAKER) (test dvwi=053) 32.5 GM/DL 32.3-36.5 RED CELL DISTRIBUTION WIDTH (BEAKER) (test ljkj=190) 13.3 % 11.6-14.4 PLATELET COUNT (BEAKER) (test rjus=692) 250 K/CU MM 150-450 MEAN PLATELET VOLUME (BEAKER) (test vhbu=882) 10.8 fL 9.4-12.4 NUCLEATED RED BLOOD CELLS (BEAKER) (test pogg=800) 0 /100 WBC 0-0 NEUTROPHILS RELATIVE PERCENT (BEAKER) (test uorg=926) 56 % LYMPHOCYTES RELATIVE PERCENT (BEAKER) (test vwqx=306) 28 % MONOCYTES RELATIVE PERCENT (BEAKER) (test pawv=340) 8 % EOSINOPHILS RELATIVE PERCENT (BEAKER) (test idcq=948) 7 % BASOPHILS RELATIVE PERCENT (BEAKER) (test dehe=779) 0 % NEUTROPHILS ABSOLUTE COUNT (BEAKER) (test lsxh=095) 5.60 K/ L 1.78-5.38 LYMPHOCYTES ABSOLUTE COUNT (BEAKER) (test ieoj=253) 2.78 K/ L 1.32-3.57 MONOCYTES ABSOLUTE COUNT (BEAKER) (test zooy=719) 0.83 K/ L 0.30-0.82 EOSINOPHILS ABSOLUTE COUNT (BEAKER) (test roqi=659) 0.71 K/ L 0.04-0.54 BASOPHILS ABSOLUTE COUNT (BEAKER) (test zphw=068) 0.03 K/ L 0.01-0.08 IMMATURE GRANULOCYTES-RELATIVE PERCENT (BEAKER) (test spzj=4053) 1 % 0-1
[2018-09-11] MEDS ORDERED: CEFEPIME 2 GM/NS 0.9% 100 ML 100 ML IV SCH ×2 (14:00→18:00)
[2018-09-11] MEDS ORDERED: VANCOMYCIN 1GM/NS 250 ML 250 ML IV ONE (14:00)
[2018-09-11 14:14] LABS: BASOPHILS % 0.3 % (0.0-1.0); EOSINOPHILS # (AUTO) 0.6 (0.0-0.4); EOSINOPHILS % 5.7 % (0.0-6.0); HEMATOCRIT 41.3 % (38.2-49.6); HEMOGLOBIN 13.4 g/dL (14.0-18.0); LYMPHOCYTES # (AUTO) 2.4 (1.0-3.2); LYMPHOCYTES % 22.6 % (18.0-39.1); MEAN CORPUSCULAR HEMOGLOBIN 30.7 pg (28-32); MEAN CORPUSCULAR HGB CONC 32.4 g/dL (31-35); MEAN CORPUSCULAR VOLUME 94.5 fL (81-99); MONOCYTES # (AUTO) 0.7 (0.2-0.8); MONOCYTES % 6.2 % (4.4-11.3); NEUTROPHILS # (AUTO) 6.9 (2.1-6.9); NEUTROPHILS % 64.8 % (38.7-80.0); PLATELET COUNT 328 x10e3/uL (140-360); RED BLOOD COUNT 4.37 x10e6/uL (4.3-5.7); RED CELL DISTRIBUTION WIDTH 13.5 % (11.7-14.4)
[2018-09-11] MEDS ORDERED: ATORVASTATIN CA20 MG PO (14:17)
[2018-09-11 14:22] LABS: INR 0.94; PROTHROMBIN TIME 13.4 seconds (11.9-14.5)
[2018-09-11 14:23] LABS: PARTIAL THROMBOPLASTIN TIME 26.7 seconds (23.8-35.5)
[2018-09-11 14:33] LABS: ALANINE AMINOTRANSFERASE 17 IU/L (0-55); ALBUMIN 3.3 g/dL (3.5-5.0); ALBUMIN/GLOBULIN RATIO 1.2 (0.8-2.0); ALKALINE PHOSPHATASE 91 IU/L (40-150); ANION GAP 16.9 mmol/L (8-16); BLOOD UREA NITROGEN 21 mg/dL (7-26); BUN/CREATININE RATIO 23 (6-25); CALCIUM 9.4 mg/dL (8.4-10.2); CARBON DIOXIDE 22 mmol/L (22-29); CHLORIDE 104 mmol/L (98-107); CREATINE KINASE 32 IU/L (30-200); CREATININE, SERUM 0.93 mg/dL (0.72-1.25); EST GLOMERULAR FILTRATION RATE > 60 ML/MIN (60-); GLUCOSE 163 mg/dL (74-118); MAGNESIUM 1.6 MG/DL (1.3-2.1); POTASSIUM 3.9 mmol/L (3.5-5.1); SODIUM 139 mmol/L (136-145)
--- NOTE | 2018-09-11 14:33 | Diagnostic Imaging Report ---
Examination: Single AP view of the chest. COMPARISON: Chest 2 views 11/07/2014 INDICATION: Cough, shortness of breath, history of stroke IMPRESSION: 1. Lines and Tubes: None 2. Mildly hypoinflated lungs. No consolidation or pulmonary edema. No effusion or pneumothorax. 3. Cardiomediastinal silhouette is normal. Pulmonary vasculature is normal. 4. No acute bony abnormalities. Signed by: Dr. Chau Anaya M.D. on 09/11/2018 2:30 PM
[2018-09-11 14:57] LABS: B-TYPE NATRIURETIC PEPTIDE2 32.7 pg/mL (0-100)
[2018-09-11] MEDS: METRONIDAZOLE 500MG/NS 100ML 100 ML IV SCH ×2 (15:21→21:30)
[2018-09-11] MEDS ORDERED: PANTOPRAZOLE 40 MG 10ML VIAL IV NR (16:00)
[2018-09-11] MEDS ORDERED: ONDANSETRON HCL INJ 2 MG/ML VIAL IV PRN (16:00)
[2018-09-11] MEDS ORDERED: DEXTROSE 50% SYRINGE 50 ML IV PRN (16:00)
--- OUTSIDE RECORDS SUMMARY | 2018-09-11 16:05 | XMS REPORT | Clinical Summary ---
Author Author TERRENCE Wright [employer] [facility] [employer] [facility] [facility] Address Unknown Phone Unavailable Care Team Providers Care Collector Of Internal Revenue Name Role Phone Fela Deshawn Matthews PCP [...] is included. POC-Glucose Meter 105Comment: TESTED AT [facility] 70 - 110 mg/dL [address] [address] [facility] Specimen Blood Performing Organization Address City/State/Zipcode Phone Number [address] [address] MEDICAL [facility]ENTER * CBC with platelet count + automated diff (06/08/2018 6:04 AM CDT) Only the most recent of 3 results within the time period is included. WBC 7.5 3.5 - 10.5 K/L [facility] RBC 3.91 (L) 4.63 - 6.08 M/L [facility] Hemoglobin 12.2 (L) 13.7 - 17.5 GM/DL [facility] Hematocrit 37.3 (L) 40.1 - 51.0 % [facility] MCV 95.4 (H) 79.0 - 92.2 fL [facility] MCH 31.2 25.7 - 32.2 pg [facility] MCHC 32.7 32.3 - 36.5 GM/DL [facility] RDW 13.4 11.6 - 14.4 % [facility] Platelets 221 150 - 450 K/CU MM [facility] MPV 10.5 9.4 - 12.4 fL [facility] nRBC 0 0 - 0 /100 WBC [facility] % Neutros 46 % [facility] % Lymphs 30 % [facility] % Monos 12 % [facility] % Eos 10 % [facility] % Baso 0 % [facility] # Neutros 3.47 1.78 - 5.38 K/L [facility] # Lymphs 2.26 1.32 - 3.57 K/L [facility] # Monos 0.92 (H) 0.30 - 0.82 K/L [facility] # Eos 0.77 (H) 0.04 - 0.54 K/L [facility] # Baso 0.02 0.01 - 0.08 K/L [facility] Immature 0 0 - 1 % [facility] Granulocytes-Relative [facility] Specimen Blood Performing Organization Address City/[facility]/Zipcode Phone Number [facility] [address] [place] [address] [phone] [place] [address] * Basic metabolic panel (06/08/2018 6:04 AM CDT) Only the most recent of 3 results within the time period is included. Sodium 137 136 - 145 meq/L [facility] Potassium 3.7 3.5 - 5.1 meq/L [facility] Chloride 107 98 - 107 meq/L [facility] CO2 24 22 - 29 meq/L [facility] BUN 17 7 - 21 mg/dL [facility] Creatinine 0.74 0.57 - 1.25 mg/dL [facility] Glucose 96 70 - 105 mg/dL [facility] Calcium 8.6 8.4 - 10.2 mg/dL [facility] EGFR 100Comment: ESTIMATED GFR IS mL/min/1.73 sq m [facility] NOT ACCURATE CREATININE [facility] CLEARANCE IN PREDICTING GLOMERULAR FILTRATION RATE. ESTIMATED GFR IS NOT APPLICABLE FOR DIALYSIS PATIENTS. Specimen Blood Performing Organization Address City/[facility] Phone Number [facility] [address] [place], [place] [phone] [place] [address] * FL esoph swallow funct with cine video (06/07/2018 3:50 PM CDT) Narrative Performed At FINAL REPORT [facility] Modified barium swallow with speech pathology History: [...] MD Report Verified Date/Time:06/07/2018 15:39:04 Reading Location: [facility] C013X Ortho Consult Reading Room Procedure [...] Report Verified Date/Time: 06/07/2018 15:39:04 Reading Location: [facility] C013X Ortho Consult Reading Room Performing Organization Address City/State/Zipcode Phone Number [facility] * 2D Echo W/Doppler(CW/PW/Color) (06/07/2018 11:53 AM CDT) Ejection Fraction [facility] Narrative Performed At Transthoracic Echocardiography Report (TTE) [facility] Demographics 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) [employer] Hand Engraver Tonio Forrester, NB, RDCS,RVT,RDMS Interpreting Bee Haney [...] CDT) TSH 2.21 0.35 - 4.94 uIU/mL [facility] Specimen Blood - Arm, Right Performing Organization Address [facility] Phone Number [facility] [address] [place] [address] [facility] * PT/aPTT (06/07/2018 3:13 AM CDT) Protime 13.8 11.7 - 14.7 seconds [facility] INR 1.1 <=5.9 [facility] PTT 27.9 22.5 - 36.0 seconds [facility] Specimen Blood - Arm, Right Narrative Performed At RECOMMENDED COUMADIN/WARFARIN INR THERAPY RANGES [facility] STANDARD DOSE: 2.0 - 3.0 Includes: PROPHYLAXIS for venous thrombosis, [facility] systemic embolization; TREATMENT for venous thrombosis and/or pulmonary embolus. HIGH RISK: Target INR is 2.5-3.5 for patients with mechanical heart valves. Performing Organization Address [facility] Phone Number [facility] [address] [place] [address] [facility] * Prealbumin (06/07/2018 3:13 AM CDT) Prealbumin 17 14 - 45 mg/dL [facility] Specimen Blood - Arm, Right Performing Organization Address [facility] Phone Number [facility] [address] [place] [address] [facility] * Hemoglobin A1c (06/07/2018 3:13 AM CDT) Hemoglobin A1C 4.9 4.3 - 6.1 % [facility] Specimen Blood - Arm, Right Performing Organization Address [facility] Phone Number [facility] [address] [place] [address] [facility] * Hepatic function panel (06/07/2018 3:13 AM CDT) Protein, Total 5.4 (L) 6.0 - 8.3 gm/dL [facility] Albumin 3.2 (L) 3.5 - 5.0 g/dL [facility] Total Bilirubin 0.5 0.2 - 1.2 mg/dL [facility] Bilirubin, Direct 0.2 0.1 - 0.5 mg/dL [facility] Alkaline Phosphatase 97 40 - 150 U/L [facility] AST 14 5 - 34 U/L [facility] ALT 13 6 - 55 U/L [facility] Specimen Blood - Arm, Right Performing Organization Address City/State/[facility] Phone Number [facility] [address] [place] [address] [phone] [place] [address] * Lipid panel (06/07/2018 3:13 AM CDT) Triglycerides 65 mg/dL [facility] Cholesterol 111 mg/dL [facility] HDL 35 mg/dL [facility] LDL Calculated 63 mg/dL [facility] Specimen Blood - Arm, Right Narrative Performed At Triglyceride Reference Range: [facility] Low Risk <150 [facility] [id number] High Risk 200-499 Very High Risk>=500 Cholesterol Reference Range: Low Risk <200 Yalwkmbdfu010-161 High Risk>240 HDL Cholesterol Reference Range: Low Risk >=60 High Risk <40 LDL Cholesterol Reference Range: Optimal<100 Near Drxisie488-292 Rxobolkwrz812-240 Jaxi213-500 Very High >=190 Performing Organization Address City/State/Zipcode Phone Number [facility] [address] [place] [address] [facility] * ECG 12 lead (06/06/2018 8:10 PM CDT) Only the most recent of 2 results within the time period is included. Narrative Performed At Ventricular Rate 102 BPM [facility] Atrial Rate 102 BPM P-R Interval 144 ms QRS Duration 162 ms Q-T Interval 372 ms QTC Calculation(Bazett) 484 ms P [place] 71 degrees R [place] 20 degrees T [place] 33 degrees Sinus tachycardia Right bundle branch [...] 372 ms QTC Calculation(Bazett) 484 ms P [place] 71 degrees R [place] 20 degrees T [place] 33 degrees Sinus tachycardia Right bundle branch block Abnormal ECG When compared with ECG of 06-JUN-2018 10:42, No significant change was found Confirmed by MD Chang Roberto ([id number]) on 06/07/2018 2:07:58 PM Performing Organization Address City/State/Yerdlecode Phone Number [employer] * Troponin I (06/06/2018 5:38 PM CDT) Only the most recent of 2 results within the time period is included. Troponin I <0.01 0.00 - 0.03 ng/mL [facility] Specimen Blood - Arm, Right Narrative Performed At Troponin I (TnI) levels must be interpreted in the context of the presenting [facility] symptoms and the clinical findings. Elevated TnI levels indicate myocardial [facility] damage, but are not specific for ischemic heart disease. Elevated TnI levels are seen in patients with other cardiac conditions (including myocarditis and congestive heart failure), and slight TnI elevations occur in patients with other conditions, including sepsis, renal failure, acidosis, acute neurological disease, and persistent tachyarrhythmia. Performing Organization Address City/State/[place]code Phone Number [facility] [address] [place], [place] [phone] [facility] * Creatine Kinase (CK), Total and MB (06/06/2018 5:38 PM CDT) Only the most recent of 2 results within the time period is included. Total CK 48 29 - 200 U/L [facility] CK-MB 1.8 0.0 - 6.6 ng/mL [facility] MB Relative Index 3.8 % [facility] Specimen Blood - Arm, Right Narrative Performed At CK-MB Reference Range: [facility] <6.7Normal [facility] 6.7-10.0Borderline >10.0 Abnormal Performing Organization Address City/[facility]/Zipcode Phone Number [facility] [address] [place], [place] [phone] [facility] * CT chest without IV contrast (06/06/2018 5:06 PM CDT) Narrative Performed At FINAL REPORT [employer] CT of the Chest dated 06/06/2018 CLINICAL [...] MD Report Verified Date/Time:06/06/2018 17:10:04 Reading Location: [address] Radiology Reading Room Procedure Note Interface, [...] Report Verified Date/Time: 06/06/2018 17:10:04 Reading Location: [address] Radiology Reading Room Performing Organization Address City/State/Zipcode Phone Number [facility] * ED ECG Interpretation (06/06/2018 4:19 PM CDT) Narrative [facility]formed At [facility] MD 06/06/20184:19 PM ECG/EKG Interpretation Date/Time: 06/06/2018 4:18 PM Performed by: THOMAS MAC Authorized by: THOMAS MAC The ECG was interpreted by ED physician. The ECG is interpreted as sinus rhythm. Rate is normal rate. Heart rate is 82 BPM. Abnormal conduction noted: right bundle branch block. ST segments abnormal. T waves abnormal. [place] is right. Clinical Impression: abnormal ECGECG reviewed and does not meet STEMI criteria. * D-dimer (06/06/2018 12:54 PM CDT) D-Dimer, Quant 0.50 (H) <0.50 MG/L FEU [facility] Specimen Blood - Line, Venous Narrative Performed At Intended Use: The D-Dimer Assay can be used to aid in the diagnosis of Deep Vein [facility] Thrombosis (DVT) and Pulmonary Embolism Disease (PED). [facility] In patients with low pre-test probability, various studies concerning STA Liatest D-dimer test have reported that with a cutoff value of 0.50 MG/L FEU, the Negative Predictive Value (NPV) regarding the exclusion of thrombosis is within 95-100% range. Performing Organization Address City/[facility]/Zipcode Phone Number [address] * B-type Natriuretic Factor (BNP) (06/06/2018 11:49 AM CDT) BNP 24 0 - 100 pg/mL [facility] Specimen Blood - Arm, Left Performing Organization Address [facility] [place] [phone] * XR chest PA or AP 1 view in dept (06/06/2018 11:36 AM CDT) Narrative Performed At FINAL REPORT [employer] Chest, AP view, two images. History: Chest pain. Comparison: None available. Discussion:Suboptimal positioning. The cardiomediastinal silhouette and pulmonary vasculature are within normal limits. The lungs are clear without evidence of consolidation or effusion.There are no acute osseous abnormalities. The soft tissues are unremarkable. IMPRESSION: No acute cardiopulmonary abnormality. Signed: Cindi Wan MD Report Verified Date/Time:06/06/2018 12:23:59 Reading Location: [facility] Mammo Reading Room Procedure Note Interface, External [...] Report Verified Date/Time: 06/06/2018 12:23:59 Reading Location: [facility] Mammo Reading Room Performing Organization Address City/State/Zipcode Phone Number [facility] after 09/10/2017 Insurance Payer Benefit Subscriber ID Type Phone Address Plan / Group [facility] C[employer] xxxxxxxx [facility] [employer] Contracted ALL Advance Directives For more information, please contact: [address] [address] Date Inactivated Comments Code Status Date Activated 06/08/2018 3:46 PM Full Code 06/06/2018 7:09 PM This code status was determined by: Patient
[2018-09-11] MEDS ORDERED: ALBUTEROL SULF 0.083% NEB SOLN 3 ML NEB NEB PRN (16:45)
[2018-09-11] MEDS ORDERED: IPRATROPIUM BROMIDE 0.02% 2.5 ML NEB NEB PRN (16:45)
[2018-09-11] MEDS: SODIUM CHLORIDE 0.9% 1000ML 1,000 ML IV SCH (17:17)
[2018-09-11] MEDS: INSULIN LISPRO 100 UNIT/1 ML 3ML VIAL SQ SCH ×2 (17:20→20:31)
--- NOTE | 2018-09-11 17:30 | NUR ---
Received patient to the unit at this time. Patient's son, Rush, at the bedside. Patient is consistently coughing and attempting to clear throat. Patient's O2 sat is 98% on 2L. All other VSS. Upon assessment of skin, stage 2 sacral wound noted. Son stated wound has been present and he's been "treating" it. Applied pink foam pad dressing. Initiated wound consult. Applied diaper to patient for incontinence. Alternating mattress pump applied to bed. Call martin is within patient's reach. Bed is low and locked. Bed alarm activated.
[2018-09-11 17:36] LABS: CLARITY,URINE CLOUDY (CLEAR); COLOR,URINE BROWN (YELLOW)
[2018-09-11 17:37] LABS: KETONES,URINE NEGATIVE (NEGATIVE); LEUKOCYTE ESTERASE ,URINE TRACE (NEGATIVE); NITRITE,URINE POSITIVE (NEGATIVE); PROTEIN,URINE DIPSTICK 2+ (NEGATIVE); URINE UROBILINOGEN 1 mg/dL (0.2 - 1)
[2018-09-11 17:39] LABS: BILIRUBIN,URINE 2+ (NEGATIVE)
[2018-09-11 17:40] VITALS: BP 159/72
[2018-09-11 17:40] LABS: BACTERIA,URINE MANY /HPF; CALCIUM OXALATE CRYSTALS,UR RARE (FEW); EPITHELIAL CELLS,URINE MODERATE /LPF; RBC,URINE >50 /HPF (0-5)
[2018-09-11 19:51] VITALS: BP 159/72
[2018-09-11 20:00] VITALS: BP 150/73
[2018-09-11 20:16] VITALS: BP 159/72
[2018-09-11 20:30] VITALS: BP 150/73
[2018-09-12] VITALS (9 sets, daily range): BP systolic 151–204; BP diastolic 73–115
[2018-09-12] MEDS: SODIUM CHLORIDE 0.9% 1000ML 1,000 ML IV SCH ×3 (02:44→23:08)
[2018-09-12] MEDS ORDERED: METRONIDAZOLE 500MG/NS 100ML 100 ML IV SCH (04:00)
[2018-09-12 04:42] LABS: BASOPHILS % 0.4 % (0.0-1.0); EOSINOPHILS # (AUTO) 0.4 (0.0-0.4); EOSINOPHILS % 3.2 % (0.0-6.0); HEMATOCRIT 35.7 % (38.2-49.6); HEMOGLOBIN 11.7 g/dL (14.0-18.0); LYMPHOCYTES % 36.1 % (18.0-39.1); MEAN CORPUSCULAR HEMOGLOBIN 30.4 pg (28-32); MEAN CORPUSCULAR HGB CONC 32.8 g/dL (31-35); MEAN CORPUSCULAR VOLUME 92.7 fL (81-99); MONOCYTES # (AUTO) 1.1 (0.2-0.8); MONOCYTES % 9.5 % (4.4-11.3); NEUTROPHILS # (AUTO) 5.6 (2.1-6.9); NEUTROPHILS % 50.4 % (38.7-80.0); PLATELET COUNT 276 x10e3/uL (140-360); RED BLOOD COUNT 3.85 x10e6/uL (4.3-5.7); RED CELL DISTRIBUTION WIDTH 13.5 % (11.7-14.4)
[2018-09-12 05:01] LABS: ALANINE AMINOTRANSFERASE 16 IU/L (0-55); ALBUMIN 2.9 g/dL (3.5-5.0); ALBUMIN/GLOBULIN RATIO 1.3 (0.8-2.0); ALKALINE PHOSPHATASE 80 IU/L (40-150); ANION GAP 13.8 mmol/L (8-16); BLOOD UREA NITROGEN 17 mg/dL (7-26); BUN/CREATININE RATIO 22 (6-25); CALCIUM 8.7 mg/dL (8.4-10.2); CARBON DIOXIDE 23 mmol/L (22-29); CHLORIDE 106 mmol/L (98-107); CREATININE, SERUM 0.76 mg/dL (0.72-1.25); EST GLOMERULAR FILTRATION RATE > 60 ML/MIN (60-); GLUCOSE 82 mg/dL (74-118); POTASSIUM 3.8 mmol/L (3.5-5.1); SODIUM 139 mmol/L (136-145)
[2018-09-12 05:18] LABS: CREATINE KINASE MB 1.4 ng/mL (0-5.0)
[2018-09-12] MEDS: INSULIN LISPRO 100 UNIT/1 ML 3ML VIAL SQ SCH ×4 (07:30→20:58)
[2018-09-12] MEDS: METRONIDAZOLE 500MG/NS 100ML 100 ML IV SCH ×3 (08:50→21:57)
[2018-09-12] MEDS: PANTOPRAZOLE 40 MG 10ML VIAL IV SCH (08:50)
[2018-09-12] MEDS: ATORVASTATIN 20 MG TAB PO SCH (09:00)
[2018-09-12] MEDS: LIOTHYRONINE SODIUM 5 MCG TAB PO SCH (09:00)
[2018-09-12] MEDS: LEVOTHYROXINE SODIUM 50 MCG TAB PO SCH (09:00)
[2018-09-12] MEDS: CLOPIDOGREL BISULFATE 75 MG TAB PO SCH (09:00)
[2018-09-12] MEDS: CEFEPIME 2 GM/NS 0.9% 100 ML 100 ML IV SCH ×2 (10:12→23:08)
--- NOTE | 2018-09-12 11:10 | NUR ---
Received patient mid fowlers position , side rails upx3, call light within reach, bed alarm on. Resting with eyes closed. Arousable to verbal stimuli. Respirations even and unlabored. O2 2L NC. Will continue to monitor.
--- NOTE | 2018-09-12 12:00 | NUR ---
WOUND CARE CONSULTATION - INITIAL EVALUATION -Patient admitted for SOB, Aspiration PNA through ER from Home. WBC11.17 Hgb11.7 HCT35.7 GLU82 ALB2.9 - Pending Urine CX, Blood CX results - Son at bedside states patient aspirated while drinking from a cup while using straw. - Pt NPO at this time pending swallow eval - Wound Care consulted for concerns of open wound to sacral area. - Upon bedside assessment the following was noted: -Left Sacral - Proximal - 1.5x0.4x1.5 cm - Healing Boil - No redness, no swelling, no induration, denies pain to area -Left Sacral - Proximal - 0.5x0.3x0.5 cm - Healing Boil - No redness, no swelling, no induration, denies pain to area -Sacrum - Blanchable Erythema - [id number] - Leathery and Frail. - Son at bedside able to provide history of lacerations. States area started with an indurated area the size of a golf ball with a white head to the area. It was draining at the time. He went to a local pharmacist and was advised to use salt based soak and to apply over the counter antibiotic ointments. He states he was doing treatments 3-4 times a day. States area has improved dramatically since. - RECOMMENDATIONS: 1. Sacrum - Venelex Ointment and Allevyn Foam Sacrum Daily. 2. Sacral Left Distal - Bactroban Ointment and Cover with Allevyn Foam Sacrum Daily 3. Sacral Left Proximal - Bactroban Ointment and Cover with Allevyn Foam Sacrum Daily. 4. Continue Alternating Air Mattress 5. Continue Turing and Repositioning q2h 6. Continue Bilateral Heel Protectors / Offload heels with Pillows while in bed. 7. Chair Cushion when out of bed. -DISCHARGE PLANNING: NO BARRIERS FOR HOME WITH HOME HEALTH -VS- SNF from WC Standpoint. Addendum: 01/14/19 at 1226 by Wilbert Chandra RN Amended: Links added.
--- NOTE | 2018-09-12 15:10 | NUR ---
Nutrition Intervention Note RD Recommendation(s) for Physician: -NPO is recommended until MBS is completed -Rec ADA diet if PO is feasible; diet texture per FLOOR REFINISHER discretion -Rec EN through PEG for alf nutrition if PO is not feasible -Consult RD for TF recommendation Plan of Care: RD following, monitoring for tolerance and adequacy Nutrition reason for involvement: Nutrition Risk Trigger MST RD Assessment 09/12 Chart reviewed. 88yo M, who is admitted for dysphagia. Pt was discussed during rounds. Pending MBS. CXR was unremarkable. Visited pt in the room. Unable to obtain hx from pt; no family presented on bedside. No physical sign of muscle and fat loss upon observation. RD rec NPO until PO is safe. Will continue to monitor and follow. Principal Problems/Diagnoses: Dysphagia PMH: HTN, DM, stroke GI: abdomen soft, round, non-tender, LBM 09/11 Skin: No pressure wound noted by wound care Labs: (09/12) reviewed Meds: (09/12) abx, IVF Ht: 66in Wt: 163lb BMI: 26.3kg/m2 IBW: 142lb Malnutrition Evaluation (09/12/2017) No physical sign of malnutrition at this time. Will re-evaluate at follow-up as appropriate. Nutrition Prescription (Diet Order): NPO Estimated Nutritional Needs: Calories: 1332 1628kcal (18-22kcal/kg/d) Weight used : Actual BW Protein : 96 148g (1.3-2g/kg/d) Weight used: Actual BW Diet Adequacy: Not meeting calorie needs, Not meeting protein needs Diet Education Needs Assessment: Diet education not indicated; patient is NPO. Nutrition Care Level: mod Nutrition Diagnosis: Inadequate oral intake related to current medical status as evidenced by being NPO and pending swallow eval. Goal: Patient will meet 75-100% of estimated needs by follow up Progress: N/A Interventions: Texture/ carbohydrate-modified diet, Recommended Modifications, Collaboration with other providers Monitoring/Evaluation: Total energy intake, Total protein intake, Modified diet, Liquid supplement, Weight change Signed: Rebekah Swift, MS, RD, LD
--- NOTE | 2018-09-12 15:48 | NUR ---
CASE MANAGEMENT INITIAL ASSESSMENT Machine Marker to bedside to discuss plan of care with patient/family. CM/SW role and care transitions discussed. Anticipated discharge plan discussed along with duration of care. CM discussed patients right to make decisions in care. CM/SW work hours given. 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 Current/Previous Home Health: PATIENT/ PATIENT UNABLE TO RECALL HOME HEALTH AGENCY NAME FROM 4 YEARS AGO. PCP/Follow-up Care: DR. ROSE Current/Previous DME: WALKER, WHEELCHAIR, HOSPITAL BED, ELECTRIC CHAIR. PATIENT UNABLE TO GET AROUND AND DOES NOT CURRENTLY HAVE HOME O2. Other Services: NONE Employment Status: RETIRED Areas of Concerns: NONE AT THIS TIME Referral Needs: POSSIBLE HOME HEALTH PT EVAL AND TREAT Education Needs: NONE AT THIS TIME IMM/LIM given and signed (if applicable): IMM Goal for discharge: DISCHARGE HOME WITH HOME HEALTH SERVICES CM left business card at the bedside with contact information. Name and number was also written on the patients whiteboard. Patient verbalized understanding of discussion. CM will follow-up with ongoing discharge and transition of care needs. Addendum: 09/12/18 at 1555 by Mary Molina CM PATIENT DID NOT COME FROM ANOTHER FACILITY. PER PATIENT FAMILY, PATIENT WAS ADMITTED TO THE ED FROM HOME.
--- NOTE | 2018-09-12 16:33 | Diagnostic Imaging Report ---
PROCEDURE: X-RAY MODIFIED BARIUM SWALLOW COMPARISON: None. INDICATION: Rule out aspiration. Radiation Details: Fluoroscopy time: 4.3 minutes Cumulative dose: 24.6 mGy Dose area product: 6.3 Gy.cm2 DISCUSSION: Fluoroscopic examination was performed in conjunction with speech pathology during swallowing a variety of thin and thick liquid consistencies. Provided images demonstrate penetration without evidence of aspiration. CONCLUSION: Modified barium swallow demonstrating penetration without evidence of aspiration. Please refer to the speech pathology report for further details. Signed by: Dr. Chrystal Felipe MD on 09/12/2018 3:15 PM
[2018-09-12] MEDS ORDERED: TRAMADOL HCL 50 MG TAB ONE (16:55)
[2018-09-12] MEDS: TRAMADOL HCL 50 MG TAB PO SCH (17:02)
[2018-09-12] MEDS: HYDRALAZINE HCL 20 MG/ML VIAL IV PRN ×2 (17:03→23:00)
--- NOTE | 2018-09-12 18:33 | NUR ---
ST 114. Patient appears anxious and states "can I have something for anxiety, I do take medicine at home for anxiety. " Dr.Schnell puente
[2018-09-12] MEDS ORDERED: ALPRAZOLAM 0.5 MG TAB PO PRN (18:45)
--- NOTE | 2018-09-12 18:47 | NUR ---
ST113. Patient aware of orders and states " I prefer to take anxiety medication at night"
--- NOTE | 2018-09-12 19:15 | NUR ---
PATIENT RECEIVED. PATIENT RESTING IN BED. RESP EVEN AND UNLABORED. PATIENT REQUEST FOR ANXIETY PILL. WILL MEDICATE PER MAD. PATIENT DENIES OF ANY PAIN AT THIS TIME. CALL LIGHT WITHIN REACH. INSTRUCT TO CALL FOR ASSISTANCE. BED LOW/LOCKED. CONTINUE TO MONITOR CLOSELY
[2018-09-13] VITALS (7 sets, daily range): BP systolic 131–163; BP diastolic 65–87
[2018-09-13] MEDS ORDERED: METOPROLOL TARTRATE INJ 1 MG/ML VIAL IV ONE
--- NOTE | 2018-09-13 00:02 | NUR ---
NOTIFIED DR ROSE HIGH HR 130 SUSTAINED AND HIGH BP. NEW ORDER RECEIVED.
--- NOTE | 2018-09-13 00:31 | NUR ---
PATIENT IS RESTING QUIETLY AT THIS TIME. HR 98. NO ACUTE DISTRESS NOTED.
[2018-09-13] MEDS: METRONIDAZOLE 500MG/NS 100ML 100 ML IV SCH ×4 (05:20→22:13)
--- NOTE | 2018-09-13 06:44 | NUR ---
PAGED DR JACOBS FOR CONSULT. NEW ORDER RECEIVED
--- NOTE | 2018-09-13 07:02 | NUR ---
Received patient resting in bed, side rails upx3, call light within reach, son at bedside. No s/s of acute distress noted. Tele 12 SR 84. Will continue to monitor.
[2018-09-13] MEDS: INSULIN LISPRO 100 UNIT/1 ML 3ML VIAL SQ SCH ×4 (07:30→21:00)
[2018-09-13] MEDS ORDERED: ALPRAZOLAM 0.5 MG PO SCH (09:00)
[2018-09-13] MEDS: ATORVASTATIN 20 MG TAB PO SCH (09:18)
[2018-09-13] MEDS: CLOPIDOGREL BISULFATE 75 MG TAB PO SCH (09:18)
[2018-09-13] MEDS: LIOTHYRONINE SODIUM 5 MCG TAB PO SCH (09:18)
[2018-09-13] MEDS: PANTOPRAZOLE 40 MG 10ML VIAL IV SCH (09:18)
[2018-09-13] MEDS: TRAMADOL HCL 50 MG TAB PO SCH ×2 (09:18→16:17)
[2018-09-13] MEDS: LEVOTHYROXINE SODIUM 50 MCG TAB PO SCH (09:18)
[2018-09-13] MEDS: CEFEPIME 2 GM/NS 0.9% 100 ML 100 ML IV SCH ×2 (10:45→22:50)
[2018-09-13] MEDS: MUPIROCIN 2% OINT 22 GM TUBE TOP SCH (12:00)
[2018-09-13] MEDS: BALSAM PERU/CASTOR OIL 60 GM OINT...G. TP SCH (12:00)
--- NOTE | 2018-09-13 15:57 | Consultation ---
DATE OF CONSULTATION: CARDIOLOGY CONSULTATION REASON FOR CONSULTATION: Tachycardia. HISTORY OF PRESENT ILLNESS: This is an 88-year-old man with a history of cerebrovascular accident leaving him essentially bedbound, dementia, hypertension, diabetes mellitus, and hyperlipidemia, who presented to the emergency department with an aspiration event. The patient had a mild nonproductive cough, and his son gave him NyQuil with prompt aspiration and significant amount of coughing and shortness of breath. The patient's son denies any fever, chills or significant sputum production prior to this. He had an episode of shortness of breath approximately 4 months ago and was taken to [facility] in the [facility], and the patient's son states that he had a full cardiac evaluation including an echocardiogram at that time. These results are unavailable to me at this point in time. The patient is essentially nonverbal and is sleeping throughout the history. Upon arrival here, the patient was hemodynamically stable and had an episode of sinus tachycardia, which prompted our consultation. REVIEW OF SYSTEMS: Unable to be obtained due to significantly debilitated and demented state. PAST MEDICAL HISTORY: As stated above in the HPI. PAST SURGICAL HISTORY: None recent. FAMILY HISTORY: Noncontributory. ALLERGIES: NO KNOWN DRUG ALLERGIES. MEDICATIONS: Please see medication reconciliation form. PHYSICAL EXAMINATION VITAL SIGNS: Temperature 98.4, heart rate 83, respirations 16, blood pressure 140/65, oxygen saturation 98% on 2 L nasal cannula. GENERAL: He is an elderly man lying comfortably in bed, no apparent distress. Opens eyes to verbal stimulation. Contracted on the left side. HEAD: Normocephalic and atraumatic. EYES: His extraocular muscles appear intact. NECK: No jugular venous distention. CARDIOVASCULAR: Regular rate and rhythm. No murmurs appreciated. LUNGS: Clear to auscultation. ABDOMEN: Soft, nontender and nondistended. EXTREMITIES: No edema. VASCULAR: Diminished pulses. SKIN: Warm, dry and intact. NEUROLOGIC: The patient is bedbound and contracted on the left side. Nonverbal. CARDIOVASCULAR MEDICATIONS: Reviewed. LABORATORY DATA: Hemoglobin 11.7, white blood cell count 11.1, platelets 276. Troponin is 0.022, creatinine 0.76. TELEMETRY MONITORING: Sinus tachycardia. EKG: A 12-lead electrocardiogram shows normal sinus rhythm, right bundle-branch block. IMPRESSION 1. Sinus tachycardia. 2. Aspiration pneumonia. 3. Dementia. 4. Cerebrovascular accident. 5. Hypertension. 6. Hyperlipidemia. RECOMMENDATIONS: Continue to monitor closely on telemetry. The patient likely had a tachycardia event related to his poor oral intake and his current aspiration pneumonia. Continue to monitor clinically and on telemetry. Correct all electrolyte levels. The patient's son states he had a recent echocardiogram done approximately 4 months ago in the [facility]. Please obtain records from the Medical Center to avoid superfluous testing. Otherwise, continue current treatment plan per primary team. Job#: [id number]
[2018-09-13] MEDS: SODIUM CHLORIDE 0.9% 1000ML 1,000 ML IV SCH (16:17)
--- NOTE | 2018-09-13 19:14 | NUR ---
Report given to oncoming nurse of patient's status
--- NOTE | 2018-09-13 19:20 | NUR ---
PATIENT RECEIVED. PATIENT RESTING IN BED. RESP EVEN AND UNLABORED. NO ACUTE DISTRESS NOTED. PATIENT DENIES OF ANY PAIN OR DISCOMFORT AT THIS TIME. CALL LIGHT WITHIN REACH. INSTRUCT TO CALL FOR ASSISTANCE. BED LOW/LOCKED. CONTINUE TO MONITOR CLOSELY
[2018-09-14] VITALS: BP 141/70
[2018-09-14 00:06] VITALS: BP 175/83
[2018-09-14] MEDS: SODIUM CHLORIDE 0.9% 1000ML 1,000 ML IV SCH ×2 (00:36→04:00)
[2018-09-14] MEDS: HYDRALAZINE HCL 20 MG/ML VIAL IV PRN (00:37)
[2018-09-14 04:00] VITALS: BP 147/71
[2018-09-14] MEDS: METRONIDAZOLE 500MG/NS 100ML 100 ML IV SCH ×2 (05:12→10:00)
--- NOTE | 2018-09-14 06:02 | Discharge Summary ---
DISCHARGE DIAGNOSIS: Sepsis secondary to pneumonia. HISTORY OF PRESENT ILLNESS AND HOSPITAL COURSE: Patient is a gentleman who is home bound, who presented with what appeared to be aspiration pneumonia and sepsis secondary to pneumonia. Barium swallow did not show any signs of aspiration. Patient finished IV antibiotics and made significant improvement. At the time of discharge, his lungs were clear. Patient was really adamant that he wanted to go home. I did have a long discussion with his son about his overall long-term poor prognosis, his comorbidities and being essentially home bound and nonambulatory. He completely understood. He wanted to go ahead and take the patient home. I offered him SNF, but he did not want that. Patient was then discharged home with Levaquin 500 mg for 10 more days. Follow up with me in approximately 2 weeks. Please see hospital chart for full details. ARNULFO ROSE MD Job#: [id number]
--- NOTE | 2018-09-14 07:10 | NUR ---
RCD PT AT BED PT IS ORIENTED ASSESSMENT DONE PT RESTING ON BED NO SIGNS OF ANY DISTRESS NOTED IV PATENT BED LOW AND LOCK CALL LIGHT IN REACH
[2018-09-14] MEDS: INSULIN LISPRO 100 UNIT/1 ML 3ML VIAL SQ SCH (07:30)
[2018-09-14 07:59] VITALS: BP 159/72
[2018-09-14] MEDS: PANTOPRAZOLE 40 MG 10ML VIAL IV SCH (08:24)
[2018-09-14] MEDS: LIOTHYRONINE SODIUM 5 MCG TAB PO SCH (08:24)
[2018-09-14] MEDS: ATORVASTATIN 20 MG TAB PO SCH (08:24)
[2018-09-14] MEDS: CLOPIDOGREL BISULFATE 75 MG TAB PO SCH (08:25)
[2018-09-14] MEDS: LEVOTHYROXINE SODIUM 50 MCG TAB PO SCH (08:25)
[2018-09-14] MEDS: TRAMADOL HCL 50 MG TAB PO SCH (08:25)
[2018-09-14] MEDS: MUPIROCIN 2% OINT 22 GM TUBE TOP SCH (08:41)
[2018-09-14] MEDS: BALSAM PERU/CASTOR OIL 60 GM OINT...G. TP SCH (09:00)
[2018-09-14 09:27] VITALS: BP 159/72
[2018-09-14] MEDS ORDERED: LEVAQUIN500 MG PO ×2 (09:52→09:53)
[2018-09-14] MEDS: CEFEPIME 2 GM/NS 0.9% 100 ML 100 ML IV SCH (10:00)
--- NOTE | 2018-09-14 10:22 | NUR ---
PT WENT HOME IN SAFE CONDITION WITH HIS SON
--- NOTE | 2018-09-14 10:43 | NUR ---
CM SPOKE TO PATIENT AT BEDSIDE REGARDING IMM LETTER. IMM LETTER GIVEN WITH EXPLANATION. ORIGINAL SIGNED AND PLACED IN CHART; COPY OF ORIGINAL DOCUMENT GIVEN TO PATIENT AT BEDSIDE AND PLACED IN CARE TRANSITION FOLDER. CM CONTACT INFORMATION GIVEN TO PATIENT FOR ANY NEEDS OR CONCERNS. PATIENT WITH NO FURTHER QUESTIONS.
== END 2018-09-14 10:22 | disposition home or self-care (01) | DRG 871 ==
LOC: ER 13:32 → ERHOLD 16:02 → MED/SURG2 17:27
PROVIDERS: ADMIT Internal Medicine; ATTEND Internal Medicine
DX: A41.9 Sepsis, unspecified organism (principal); J69.0 Pneumonitis due to inhalation of food and vomit; N39.0 Urinary tract infection, site not specified; I10 Essential (primary) hypertension; E11.9 Type 2 diabetes mellitus without complications; Z79.4 Long term (current) use of insulin; F41.9 Anxiety disorder, unspecified; E78.5 Hyperlipidemia, unspecified; F03.90 Unspecified dementia, unspecified severity, without behavioral disturbance, psychotic disturbance, mood disturbance, and anxiety; Z74.01 Bed confinement status
CPT/HCPCS: 36415; 70450; 71045; 74230; 80053; 81001; 82550; 82553; 82948; 83605; 83735; 83880; 84484; 85025; 85610; 85730; 87040; 87086; 87400; 93005; 93306; 94640; 99285; J0360; J3370; J7030